=== PATIENT | male | born 1985 | race Caucasian/White ===

== ENCOUNTER 2024-06-24 21:09 | Inpatient (IN) ==
[2024-06-25] MEDS ORDERED: VANCOMYCIN HCL 1,000 MG in SODIUM CHLORIDE 0.9% 250 ML IV SCH (00:50)
[2024-06-25] MEDS ORDERED: ONDANSETRON INJ 2 MG/ML 2 ML VIAL IV PRN (00:50)
[2024-06-25] MEDS ORDERED: VANCOMYCIN CONSULT ACTIVE PRN (00:50)
--- NOTE | 2024-06-25 01:07 | History & Physical Report ---
Date of Service June 25, 2024 Assessment & Plan (1) Meningitis: Plan: 38-year-old male with past medical history significant for migraines comes with c/o headaches and fevers. Patient's headache is going on for about a week. Also having fevers for 1 week. Also neck pain. Back pain. Spine pain. Complains of some runny nose. Some sore throat. Some cough. Abdominal pain. Constipated. Some shortness of breath. No chest pains. Appetite is poor. Mi cturating okay. While ambulating having imbalance. Vision is okay. Lights bothering him. Was at [facility] today. CT head was okay there. And he was transferred here for possible meningitis and for LP. Hemodynamics okay. Mother is in the room. Possible meningitis Severe headache and neck pain Fevers Leukocytosis CT head okay [facility] Will check MRI head CTA head and neck Empiric Rocephin, Vanco and acyclovir Lumbar puncture in a.m. IV fluids Pain control could not tolerate imaging studies because of pain last night, can try in am Consult ID and neurology Close monitor Thrombocytopenia Platelets 83 Possible from ongoing infection Follow repeat labs Liver lesion and possible splenomegaly Abdomen ultrasound when stable DVT prophylaxis SCDs for now Disposition Medical floor Full code. Admission and Anticipated Discharge Date Admission Date: June 24, 2024 History of Present Illness Chief Complaint: Severe headaches and fever Primary Care Provider: NO PCP 38-year-old male with past medical history significant for migraines comes with c/o headaches and fevers. Patient's headache is going on for about a week. Also having fevers for 1 week. Also neck pain. Back pain. Spine pain. Complains of some runny nose. Some sore throat. Some cough. Abdominal pain. Constipated. Some shortness of breath. No chest pains. Appetite is poor. Micturating okay. While ambulating having imbalance. Vision is okay. Lights bothering him. Was at [facility] today. CT head was okay there. And he was transferred here for possible meningitis and for LP. Hemodynamics okay. Mother is in the room. Past medical history. Migraines Past surgical history. Bilateral carpal tunnel surgeries Social history. Vapes tobacco. Currently no alcohol use. No drug use. Family history. No significant family history Allergies Allergy/AdvReac Type Severity Reaction Status Date / Time aluminum Allergy Unknown Unknown Verified 06/25/24 01:17 topiramate [From Topamax] Allergy Unknown Unknown Verified 06/25/24 01:17 Past Med/Surg History Problem List (Updated 06/25/24 @ 01:18 by Milton Alvarenga MD) Meningitis Social History Smoking Status: Current every day smoker Tobacco Type: E-cigarettes / Vaping Second Hand Exposure: No; Do You Dip or Chew Tobacco: No; Tobacco Cessation Education Requested by Patient: No Hx Alcohol Use: No Hx Substance Use: No Preferred Language: Wolof Communication Ability: Effective Compliance Director Required: No Beliefs That Will Affect Care: None Current Living Situation: Family Other Information That Helps Us Care for You: No Feels Safe at Home: Yes Safety Concerns: Feels Safe At This Time Assistive Devices: None Review of Systems Review of Systems: All systems reviewed & are unremarkable except as noted in HPI & below Physical Exam Physical Exam: General- Not in distress Head- atraumatic Eyes- EOMI ENT- oropharynx clear Neck- supple, no JVD. Lungs- clear to auscultation no wheezing or crackles. Heart- regular rate and rhythm; no murmur, no gallop. Abdomen- normal bowel sounds, soft, , no distension Extremities- no pretibial edema, no erythema seen Neuro- alert, oriented ; EOMI; no facial palsy; no dysarthria; moves extremities Skin- warm & dry Results & Data Results & Data Vital Signs (Past 12 Hours) Vital Signs Temp Pulse Resp BP Pulse Ox O2 Del Method 06/24/24 23:59 37.9 C H 72 18 124/82 98 Room Air 06/24/24 23:50 37.9 C H 72 18 124/82 98 Room Air Diagnostic Findings From [facility]: wbc 16.9, hb 16.9 hct 46.9, platelets 83. Sodium 137, potassium 3.8, chloride 99, co2 30, bun 9, cr 0.8 ,ca 8.5,T.B 0.5,ASt 50, Alt 99, Alk phosp 72 Covid negative, rapid strep negative CT head, No acute findings Chest xray., No acute findings CT chest No PE, Two lesions in liver lesions can do Ultrasound or MRI for better characterizations. possible enlarged spleen. Code Status & VTE Plan VTE Prophylaxis Plan VTE Prophylaxis will be ordered: Yes
[2024-06-25] MEDS: HYDROmorphone INJ 0.5 MG/0.5 ML SYR IV PRN (02:00)
[2024-06-25] MEDS: cefTRIAXone SODIUM 2,000 MG/50 ML BAG IV SCH (02:48)
[2024-06-25] MEDS: SODIUM CHLORIDE 0.9% 1,000 ML IV SCH (02:48)
[2024-06-25] MEDS: VANCOMYCIN HCL 1,500 MG in SODIUM CHLORIDE 0.9% 500 ML IV ONE (02:49)
[2024-06-25] MEDS: oxyCODONE HCL IR 5 MG TAB (IMMEDIATE RELEASE) PO PRN (03:30)
--- NOTE | 2024-06-25 03:31 | Magnetic Resonance Report ---
Exam(s): MRI HEAD Without Contrast EXAM: MR Head Without Intravenous Contrast CLINICAL HISTORY: severe headache. TECHNIQUE: Magnetic resonance images of the head/brain without intravenous contrast in multiple planes. COMPARISON: No relevant prior studies available. FINDINGS: Brain: The expected midline structures are unremarkable on sagittal T1 weighted imaging. No mass. No hemorrhage. No acute infarct. Ventricles: Unremarkable. No ventriculomegaly. Bones/joints: Unremarkable. No acute fracture. Sinuses: Unremarkable as visualized. No acute sinusitis. Mastoid air cells: Unremarkable as visualized. No mastoid effusion. Orbits: Unremarkable as visualized. IMPRESSION: Normal head/brain MRI. Electronically signed by: Randy Maza MD 06/25/24 03:19 AM
[2024-06-25] MEDS: ACYCLOVIR SOD IV SCH (03:41)
[2024-06-25] MEDS: DEXTROSE 5% IV SCH (03:41)
[2024-06-25] MEDS: ACETAMINOPHEN 1,000 MG/100 ML VIAL IV PRN (05:37)
--- NOTE | 2024-06-25 07:58 | Hospitalist Progress Note ---
Date of Service June 25, 2024 Assessment & Plan (1) Meningitis: (2) History of intravenous drug abuse: (3) History of hepatitis C: (4) Nausea: (5) Thrombocytopenia: Plan 38-year-old male with past medical history significant for migraines comes with c/o headaches and fevers. Patient's headache is going on for about a week. Also having fevers for 1 week. Also neck pain. Back pain. Spine pain. Complains of some runny nose. Some sore throat. Some cough. Abdominal pain. Constipated. Some shortness of breath. No chest pains. Appetite is poor. Micturating okay. While ambulating having imbalance. Vision is okay. Lights bothering him. Was at [facility] today. CT head was okay there. And he was transferred here for possible meningitis and for LP. Hemodynamics okay today. Atypical Meningitis: acute Severe headache and neck pain; improving from yesterday Fevers x1 week; 36.7 today; diaphoretic on exam No recent travel, No new medications, no exotic pets or known mold exposure Not a tamela or fisherman. Last week their cat killed a few moles and a bat; patient disposed of the rodents. Unknown exposure to saliva, blood Leukocytosis WBC 17.09 today; trend tomorrow Empiric Rocephin, Vanco and acyclovir; continue for now with ID recommendations. IV fluids @ 125ml/hour; continue for now Pain control with PRN Oxy and Dilaudid Consult ID and neurology Discussed on the phone with Neuro; as imaging negative and no signs of encephalitis and confirmed bacterial meningitis; originally cancelled consult; given the unknown etiology, will allow a formal consult to take place. Droplet precautions ECHO ordered Will obtain HIV blood work give history of Hepatitis C; Formal HIV consent obtained and ordered Close monitor--> moved to [facility] DDX includes: 1. Neoplastic type leukemia malignancy 2. Mollarets meningitis (associated with HSV - despite negative HSV on CSF) 3. Lymphocytic choriomeningitis virus The following imaging is negative: [facility] 06/24: negative Brain MRI: negative CTA head and neck ordered and pending Diagnostic testing results: 06/25: Lumbar Puncture: Cloudy per IR. CSF CBC 1,898. glucose is low(32) with elevated protein(147) HSV PCR is negative s/w Dr. Jeffery in pathology--> numerous vaculated macrophages which is quite unusual. Pathology recommends and will order flow cytometry for remaining fluid for analysis--> [place], will take until Saturday for results. Discussion with Dr. Say Cadet on the phone through the transfer center as ID consult (without physical examination). Reviewed the case, would recommend Dexamethasone 6 mg IV x3-4 days; this was ordered. Will await formal telemedicine ID consultation. Important to have continued ID consult while patient is here at the hospital. Discussion held at length with patients , Tg, at [phone] who stated that he gets quite emotional with news like this. This was important for us to know so that we could determine mental status change vs emotional due to possible diagnosis, etc. Advised her not to bring her kids into the hospital for visitation at this time. Currently, she would like him to remain at [facility] if possible. A possible transfer was discussed with infectious disease and at this time etiology would be the main indication for transfer; however, current treatment options would remain the unchanged from our current treatment plan. If patient declines or is not showing improvement, will re-discuss possible transfer to tertiary care center. Thrombocytopenia: acute Platelets 83--> 76 today likely in setting of bacterial meningitis Follow repeat labs H/O Hepatits C: H/O IVDA: Chronic Diagnosed 13-15 years ago. No formal treatment for Hepatitis C given marijana use and they were amidst trying to conceive children Known needle history with tattoo administration Known H/O IVDA 20 years ago. Last known use 20 years ago No homosexual encounters Patient is receptive to HIV testing Disposition: DVT prophylaxis: SCDs for now Disposition: Medical floor--> will transfer to med/tele today for closer monitoring Code Status: Full code I spent a total of 58 minutes coordinating, documenting, and providing care for this patient excluding time spent in the performance of separately billed services. All of the aforementioned completed while collaborating with the assigned attending physician for a full treatment plan. Please see their addendum for further details. Admission and Anticipated Discharge Date Admission Date: June 24, 2024 Supervising Physician Co-Signing Physician Notes Attending addendum: The patient was seen and examined in medical floor Remains weak, lethargic and pleasantly confused Presented with fever, photophobia, headache and confusion Not been feeling well since admission On examination Pleasantly confused with ongoing headache Hemodynamically stable Neuro examination showed positive neck stiffness and photophobia without any fo armin neurodeficit Other physical examination remained unremarkable His labs, imaging studies reviewed LP showed high white count with mostly mononuclear sites and immature cell typesfurther identification is pending Appreciate ID input and recommendation Possible lymphocytic CORHIO meningitis has to be ruled out with history of recent handling of a bat/mouse Will continue current intravenous antibiotic Agree with assessment and plan as outlined above by POLINA Holm and take the full responsibility of the patient's care in this hospital A total of 30 minutes spent in documentation and talking to the patient. Dr. Ingrid Neri Subjective Patient is lying in his hospital bed in distress. He has his eyes closed and appears uncomfortable. He states his headache is slightly improving; mostly frontal lobe region Diaphoretic on examination. Reports feeling 'foggy' Hard for patient to open his eyes. Reports nuchal rigidity, generalized body aches. Abdominal pain improving. Vomited x1 yesterday without blood. Has not ambulated today yet, but was able to move around in the bed for examination. Is tearful during examination as he is scared for next steps and to know what is going on. 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 ' Reports daily vaping (tobacco and marijuana) No history of AMI or CVA Reports history of IVDA 20 years ago. Reports known Hepatitis C from 12 years ago without treatment. known needle exposure with tattoo history Very emotional at bedside. Received Dilaudid x1 overnight. See A/P for further details. Review of Systems Review of Systems: Neuro: (-) Falls, trauma, slurred speech HEENT: (+) GONSALES, (+) dizziness, (-) dysphagia, (+) visual or auditory changes (+) generalized body aches CV: (-) CP, palpitations, swelling Resp: (-) SOB GI: (-) appetite changes, N/V/D, bowel changes (+) nausea : (-) urinary changes Skin: (-) rashes Psych: (-) anxiety, depression Physical Exam Physical Exam: Neuro: AAOx4, PERRLA, no aphagia, memory changes, CNII-XII grossly intact (+) nuchal rigidity HEENT: head normocephalic, moist mucus membranes PERRLA, diaphoretic CV: S1/S2, (-) M/G/R, (-) edema, cap refill < 3 seconds Resp: Lungs CTA in all [place]. On RA GI: Abdomen S/NT/ND, Ax4 bowel sounds, (-) CVA tenderness Musculoskeletal: 5/5 B/L UE strength, 5/5 B/L LE strength. Skin: (-) rashes , (-) erythema. Psych: euthymic mood Results & Data Results & Data Vital Signs (Past 12 Hours) Vital Signs Temp Pulse Resp BP Pulse Ox O2 Del Method 06/24/24 23:59 37.9 C H 72 18 124/82 98 Room Air 06/24/24 23:50 37.9 C H 72 18 124/82 98 Room Air Laboratory Results Short CBC 06/25/24 Range/Units 07:34 WBC 17.09 H (4.8-10.8) K/ul Hgb 15.7 (14.0-18.0) g/dl Hct 42.7 (42.0-52.0) % Plt Count 76 L (130-400) K/uL BMP 06/25/24 06/25/24 07:34 07:34 Sodium 136 Potassium 3.9 Chloride 100 Carbon Dioxide 31 BUN 11 Creatinine 0.77 0.76 Glucose 87 Calcium 7.5 L Liver Function 06/25/24 Range/Units 07:34 Total Bilirubin 0.6 (0.2-1.0) mg/dl AST 36 (13-39) U/L ALT 59 H (7-52) U/L Alkaline Phosphatase 52 (34-104) U/L Albumin 3.1 L (3.4-5.0) gm/dl Diagnostic Findings Brain MRI 06/25/24 00:50 Exam(s): MRI HEAD Without Contrast EXAM: MR Head Without Intravenous Contrast CLINICAL HISTORY: severe headache. TECHNIQUE: Magnetic resonance images of the head/brain without intravenous contrast in multiple planes. COMPARISON: No relevant prior studies available. FINDINGS: Brain: The expected midline structures are unremarkable on sagittal T1 weighted imaging. No mass. No hemorrhage. No acute infarct. Ventricles: Unremarkable. No ventriculomegaly. Bones/joints: Unremarkable. No acute fracture. Sinuses: Unremarkable as visualized. No acute sinusitis. Mastoid air cells: Unremarkable as visualized. No mastoid effusion. Orbits: Unremarkable as visualized. IMPRESSION: Normal head/brain MRI. Electronically signed by: Randy Maza MD 06/25/24 03:19 AM
[2024-06-25 08:28] LABS: INR 1.2 (0.9-1.1); Partial Thromboplastin Ratio 1.1; Partial Thromboplastin Time 29 Seconds (21-31); Prothrombin Time 12.9 Seconds (9.0-12.0)
[2024-06-25 08:38] LABS: Albumin Level 3.1 gm/dl (3.4-5.0); BUN Creatinine Ratio 14.3 (10-20); Bilirubin,Total 0.6 mg/dl (0.2-1.0); Calcium 7.5 mg/dl (8.6-10.3); Creatinine Clr Calc Pharmacy 124.6 ml/min; Est GFR (African American) 132.5 ml/min; Est GFR (Non-African American) 114.3 ml/min; Magnesium 1.5 mg/dl (1.7-2.4); Potassium 3.9 mmol/L (3.5-5.1); Total Protein 5.8 gm/dl (6.0-8.3)
[2024-06-25 08:48] LABS: Creatinine Clr Calc Pharmacy 126.3 ml/min; Est GFR (African American) 133.2 ml/min; Est GFR (Non-African American) 114.9 ml/min
[2024-06-25 09:00] LABS: Hematocrit (blood only) 42.7 % (42.0-52.0); Hemoglobin 15.7 g/dl (14.0-18.0); Mean Corpuscular Hemoglobin 32.8 pg (25.0-34.0); Mean Corpuscular Hgb Conc 36.8 g/dL (32.0-36.0); Mean Corpuscular Volume 89.1 fL (80.0-100.0); Mean Platelet Volume 11.2 fL (9.4-12.4); Platelet Count 76 K/uL (130-400); RDW Coefficient of Variation 11.5 % (11.5-14.5); RDW Standard Deviation 37.2 fL (36.4-46.3); Red Blood Count 4.79 M/uL (4.70-6.10); White Blood Count 17.09 K/ul (4.8-10.8)
[2024-06-25 09:25] LABS: ALC (manual) 8.37 K/uL (1.2-3.4); ANC (manual) 7.35 K/uL (1.4-6.5); Eosinophils # (manual) 1.03 K/uL (0-0.50); Eosinophils % (manual) 6 %; Lymphocytes # (manual) 2.91 K/uL (1.2-3.4); Lymphocytes % (manual) 17 %; Monocytes # (manual) 0.34 K/uL (0.11-0.59); Monocytes % (manual) 2 %; Neutrophils # (manual) 7.35 K/uL (1.40-6.50); Neutrophils % (manual) 43 %; Reactive Lymphocytes # (manual) 5.47 K/uL; Reactive Lymphocytes % (manual) 32 %; Toxic Vacuolation 1+
--- NOTE | 2024-06-25 09:25 | Pharmacy Report ---
Pharmacy PK ABX Note - Date of Service June 25, 2024 - Assessment and Plan Assessment 38 year old M receiving vancomycin, ceftriaxone, and acyclovir for treatment of meningitis. Pertinent microbiologic data includes: CSF culture to be collected this AM. Day # 1 of antimicrobial therapy. Plan Vancomycin * Loading dose: 1500 mg IV x 1 * Maintenance dose: 1000 mg IV every 8 hours * Regimen is predicted to achieve target AUC/FRANCISCO of 400-600 mg/L.hr * Random level ordered for: 06/26/2024 @ 0800 Pharmacy will continue to follow and will adjust dose/frequency as necessary. Thank you. Pharmacy has transitioned to AUC monitoring for vancomycin. AUC/FRANCISCO is the preferred PK/PD target and is associated with decreased risk of nephrotoxicity compared to traditional trough targets.
[2024-06-25] MEDS: VANCOMYCIN HCL 1,000 MG in SODIUM CHLORIDE 0.9% 250 ML IV SCH (09:54)
[2024-06-25 09:59] LABS: Total Protein CSF 141.7 mg/dl (15-45)
[2024-06-25 10:18] LABS: Bilirubin Direct 0.2 mg/dl (0-0.2)
[2024-06-25 10:27] LABS: Appearance CSF Cloudy; CSF Count Tube # 3; CSF Xanthrochromic No xanthochromia; Color CSF Colorless; Mononuclear WBC CSF Auto 96.8 %; Polynuclear WBC CSF Auto 3.2 %; White Blood Cell CSF Auto 1898 /uL (0-5)
[2024-06-25 10:31] LABS: Red Blood Cell CSF Manual 20 (0-)
[2024-06-25 11:13] LABS: Cryptococcus neoformans/ga PCR Not Detected (NotDetected); Cytomegalovirus PCR Not Detected (NotDetected); Enterovirus PCR Not Detected (NotDetected); Escherichia coli K1 PCR Not Detected (NotDetected); Haemophilius influenzae PCR Not Detected (NotDetected); Herpes Simplex Virus 1 PCR Not Detected (NotDetected); Herpes Simplex Virus 2 PCR Not Detected (NotDetected); Human Herpes Virus 6 PCR Not Detected (NotDetected); Human Parechovirus PCR Not Detected (NotDetected); Listeria monocytogenes PCR Not Detected (NotDetected); Neisseria meningitidis PCR Not Detected (NotDetected); Streptococcus agalactiae PCR Not Detected (NotDetected); Streptococcus pneumoniae PCR Not Detected (NotDetected); Varicella Zoster Virus PCR Not Detected (NotDetected)
--- NOTE | 2024-06-25 11:54 | Fluoroscopy Report ---
Lumbar puncture under fluoroscopy INDICATION: Headache and fever; evaluate for meningitis PROCEDURE: Procedure and risks were explained. Informed consent was obtained. A final timeout was com pleted. The patient was placed prone on the fluoroscopic exam table. The lower lumbar region was prep ped and draped in sterile fashion. 1% lidocaine was utilized for skin anesthesia. Utilizing fluoroscopic guidance, a 22-gauge spinal needle was advanced into the intrathecal space at the L2-3 level. Spot image was obtained. Opening pressure was measured at 22 cm H20. Approximately 10 mL of cloudy CSF fluid was removed and sent to the lab for analysis. The needle was removed and Band -Aid applied. The patient tolerated the procedure well. Vital signs will be monitored postprocedure. Total fluoroscopy time 10 seconds. Study dose 14.99 mGy. IMPRESSION: Lumbar puncture as above. Performed, dictated, and signed by Randy Bhakta PA-C; to be co-signed by Dr. Vikas Sousa. Electronically signed by: Vikas Sousa M.D. 06/25/2024 12:06 PM
--- NOTE | 2024-06-25 14:00 | Infectious Disease Consult ---
Date of Service June 25, 2024 Telehealth Information I performed this visit using a real-time telehealth connection between my location and the patients location ([facility]). After connecting through interactive tele-video, patient was identified by name and date of and/or wristband check.Patient (or authorized healthcare lifeline representatives) was informed that this was a telemedicine visit and it was being conducted confidentially over secure lines. My office door was closed and no o ne else was present in the room with me.Patient (or authorized healthcare lifeline representatives) provided consent to proceed with the visit, expressed an understanding of privacy and security of the telemedicine visit, and gave permission to have a hospital lifeline representatives in the room in order to assist with the visit and to conduct portions of the visit, as needed. I informed the patient (or authorized healthcare lifeline representatives) that I reviewed their record and presented the opportunity for them to ask any questions regarding the visit today. The patient agreed to participate. Assessment & Plan (1) History of hepatitis C: Plan: Untreated obtain VL (2) History of intravenous drug abuse: Plan: Drug screen (3) Meningitis: Plan: s/p LP (4) Encephalopathy acute: Plan: Continue ceftriaxone ,vancomycin,acyclovir and dexamethazone Plan Patient who presented with headache and fever and is s/p LP with elevated WBC ,low glucose and elevated protein .Agree with ceftriaxone and vancomycin pending finalization of his cultures and while his HSV PCR is negative there remains concern for Mollarets vs neoplastic type leukemic malignancy due to abundance of vaculated macrophages and so will continue acyclovir for now.Follow up his bacterial CSF cultures he will likely need antibiotics for 10-14 days.Thank you for allowing us to participate in the care of this patient ID will continue to follow History of Present Illness History of Present Illness 38 y/o M PMHx of untreated hepatitis C ,migraines and remote history of IVDA presented with c/o headaches and fevers.Patient's headache is going on for about a week and has been accompanied by fevers .He is s/p LP and is currently on ceftriaxone,vancomycin ,acyclovir and dexamethazone .His CSF WBC is elevated 1898 and glucose is low(32) with elevated protein(147) HSV PCR is negative .His slides were reviewed by pathology and there was concern for Mollarets vs neoplastic type leukemic malignancy due to abundance of vacuolated macrophages Allergies Allergy/AdvReac Type Severity Reaction Status Date / Time aluminum Allergy Unknown Unknown Verified 06/25/24 01:17 topiramate [From Topamax] Allergy Unknown Unknown Verified 06/25/24 01:17 Patient History Social History Smoking Status: Current every day smoker Tobacco Type: E-cigarettes / Vaping Second Hand Exposure: No; Do You Dip or Chew Tobacco: No; Tobacco Cessation Education Requested by Patient: No Hx Alcohol Use: No Hx Substance Use: No Preferred Language: Belarusian Communication Ability: Effective Extraction Machine Operator Required: No Beliefs That Will Affect Care: None Current Living Situation: Family Other Information That Helps Us Care for You: No Feels Safe at Home: Yes Safety Concerns: Feels Safe At This Time Assistive Devices: None Review of Systems Unable to assess as patient does not respond to questions Physical Exam No respiratory distress Results & Data Vital Signs (Past 12 Hours) Vital Signs Temp Pulse Resp BP Pulse Ox O2 Del Method 06/25/24 09:00 Room Air 06/25/24 07:54 36.7 C 66 16 135/91 95 Room Air Laboratory Results Gram Stain Final 06/25/24-1131 Gram Stain Result Many WBCs Seen No Organisms Seen Diagnostic Findings FINDINGS: Brain: The expected midline structures are unremarkable on sagittal T1 weighted imaging. No mass. No hemorrhage. No acute infarct. Ventricles: Unremarkable. No ventriculomegaly. Bones/joints: Unremarkable. No acute fracture. Sinuses: Unremarkable as visualized. No acute sinusitis. Mastoid air cells: Unremarkable as visualized. No mastoid effusion. Orbits: Unremarkable as visualized. IMPRESSION: Normal head/brain MRI.
[2024-06-25] MEDS: dexAMETHasone 6 MG in SYRINGE 0 ML IV SCH (14:23)
--- NOTE | 2024-06-25 20:55 | Electrocardiogram Report ---
Test Reason : Blood Pressure : */* mmHG Vent. Rate : 65 BPM Atrial Rate : 65 BPM P-R Int : 94 ms QRS Dur : 88 ms QT Int : 340 ms P-R-T Axes : 85 83 65 degrees QTcB Int : 353 ms Sinus rhythm with short ID Otherwise normal ECG No previous ECGs available Confirmed by Bryan hKan ([id number]) on 06/25/2024 8:54:51 PM Referred By: Milton Alvarenga Confirmed By: Bryan Khan
[2024-06-26] MEDS: LORazepam 0.5 MG TAB SL STA (06:24)
--- NOTE | 2024-06-26 07:53 | Hospitalist Progress Note ---
Date of Service June 26, 2024 Assessment & Plan (1) Meningitis: (2) History of intravenous drug abuse: (3) History of hepatitis C: (4) Nausea: (5) Thrombocytopenia: Plan 38-year-old male with past medical history significant for migraines comes with c/o headaches and fevers. Patient's headache is going on for about a week. Also having fevers for 1 week. Also neck pain. Back pain. Spine pain. Complains of some runny nose. Some sore throat. Some cough. Abdominal pain. Constipated. Some shortness of breath. No chest pains. Appetite is poor. Micturating okay. While ambulating having imbalance. Vision is okay. Lights bothering him. Was at [facility] today. CT head was okay there. And he was transferred here for possible meningitis and for LP. Hemodynamics okay today. Atypical Meningitis: acute Remain in PCU Severe headache and neck pain; continues to improve Fevers x1 week; 36.7 today; diaphoretic on exam 06/25 LP done; Cloudy per IR. CSF CBC 1,898. glucose is low(32) with elevated protein(147) HSV PCR is negative s/w Dr. Jeffery in pathology--> numerous vaculated macrophages. flow cytometry ordered for remaining fluid for analysis--> [place], will take until 06/30 for results. Leukocytosis WBC 17.09--> 13.07 on 06/26 Continue Rocephin, Vanco and acyclovir; continue for now per ID reccs Dexamethasone 6 mg IV started on 06/25 for 3-4 days. IV fluids @ 125mL/hour--> decrease to 80ml/hour until diet advances; advance as tolerated Pain control with Tylenol. Pt groggy with Oxy + Dilaudid. Discontinue for now. Discussed on the phone with Neuro; as imaging negative and no signs of encephalitis and confirmed bacterial meningitis; originally cancelled consult; given the unknown etiology, will allow a formal consult to take place. Droplet precautions in place ECHO ordered Will obtain HIV blood work give history of Hepatitis C; Formal HIV consent obtained and ordered No recent travel, No new medications, no exotic pets or known mold exposure Last week their cat killed a few moles and a bat; patient disposed of the rodents. Unknown exposure to saliva, blood Not a tamela or fisherman. DDX includes: 1. Neoplastic type leukemia malignancy 2. Mollarets meningitis (associated with HSV - despite negative HSV on CSF) 3. Lymphocytic choriomeningitis virus The following imaging is negative: [facility] 06/24: negative Brain MRI: negative CTA head and neck ordered and pending Discussion held at length with patients , Tg, at [phone] who stated that he gets quite emotional. She was grateful for the updated news of marked improvement with labs. She mentioned that he has a history of compression fracture that worsens with immoblization; he only takes Ibuprofen for this at home. A possible transfer was discussed with infectious disease and at this time etiology would be the main indication for transfer; however, current treatment options would remain the unchanged from our current treatment plan. If patient declines or is not showing improvement, will re-discuss possible transfer to tertiary care center. Thrombocytopenia: acute Platelets 83--> 76--> 06/26 improving @ 102 likely in setting of meningitis Follow repeat labs H/O Hepatits C: H/O IVDA: Chronic Diagnosed 13-15 years ago. No formal treatment for Hepatitis C given marijana use and they were amidst trying to conceive children Known needle history with tattoo administration Known H/O IVDA 20 years ago. Last known use 20 years ago No homosexual encounters HIV negative today Back pain: H/O Compression fractures: chronic Per , worsens with immobilization Takes Ibuprofen PRN at home Disposition: DVT prophylaxis: Teds/SCDs for now Disposition: PCU Code Status: Full code I spent a total of 58 minutes coordinating, documenting, and providing care for this patient excluding time spent in the performance of separately billed services. All of the aforementioned completed while collaborating with the assigned attending physician for a full treatment plan. Please see their addendum for further details. Admission and Anticipated Discharge Date Admission Date: June 25, 2024 Supervising Physician Co-Signing Physician Notes Attending addendum: The patient was seen and examined in medical floor Remains weak, lethargic and pleasantly confused Clinically stable but remains weak and lethargic On examination Pleasantly confused with ongoing headache Hemodynamically stable Neuro examination showed positive neck stiffness and photophobia without any focal neurodeficit Other physical examination remained unremarkable His labs, imaging studies reviewed LP showed high white count with mostly mononuclear sites and immature cell typesfurther identification is pending Appreciate ID input and recommendation Gradual improvement with improvement of the white count and a little symptomatic improvement Agree with assessment and plan as outlined above by POLINA Martino and take the full responsibility of the patient care Total time taken in documentation and discussion with the patient was [address] Sadia Neri Subjective Patient is lying in his hospital bed in distress. He has his eyes closed and appears uncomfortable; is able to have full conversation with his eyes closed. He states his headache continues to be in the frontal lobe region was afebrile overnight. T max 38.3 this morning; responds to tylenol Hard for patient to open his eyes; generalized body aches. Abdominal pain improving. Vomited x2 yesterday without blood. Tried to eat full liquid diet last night and vomited. Per staff, he ate rather quickly, so should take it slow for intake. Has not ambulated today yet, resistant to moving around for examination. Continues to be tearful; provided reassurance with improving WBC Received Dilaudid x2 over past 24 hours and ONE dose of Oxy; DC at outlined below See A/P for further details. Review of Systems Review of Systems: Neuro: (-) Falls, trauma, slurred speech HEENT: (+) GONSALES, (+) dizziness, (-) dysphagia, (+) visual or auditory changes (+) generalized body aches CV: (-) CP, palpitations, swelling Resp: (-) SOB GI: (-) appetite changes, N/V/D, bowel changes (+) nausea : (-) urinary changes Skin: (-) rashes Psych: (-) anxiety, depression Physical Exam Physical Exam: Neuro: AAOx4, PERRLA, no aphagia, memory changes, CNII-XII grossly intact (+) nuchal rigidity HEENT: head normocephalic, moist mucus membranes PERRLA, diaphoretic CV: S1/S2, (-) M/G/R, (-) edema, cap refill < 3 seconds Resp: Lungs CTA in all [place]. On RA GI: Abdomen S/NT/ND, Ax4 bowel sounds, (-) CVA tenderness Musculoskeletal: 5/5 B/L UE strength, 5/5 B/L LE strength. Skin: (-) rashes , (-) erythema. Psych: euthymic mood Results & Data Results & Data Vital Signs (Past 12 Hours) Vital Signs Temp Pulse Pulse Resp BP Pulse Ox O2 Del Method 06/26/24 06:48 60 06/26/24 04:01 37.3 C 68 18 106/76 96 Room Air 06/25/24 23:20 38.0 C H 61 19 129/59 L 95 Room Air 06/25/24 22:47 65 06/25/24 21:44 Room Air Laboratory Results Short CBC 06/26/24 Range/Units 08:31 WBC 13.67 H (4.8-10.8) K/ul Hgb 15.7 (14.0-18.0) g/dl Hct 43.7 (42.0-52.0) % Plt Count 102 L (130-400) K/uL BMP 06/26/24 08:31 Sodium 136 Potassium 4.2 Chloride 98 Carbon Dioxide 32 BUN 14 Creatinine 0.66 Glucose 105 H Calcium 7.6 L Liver Function 06/26/24 Range/Units 08:31 Total Bilirubin 0.5 (0.2-1.0) mg/dl AST 26 (13-39) U/L ALT 43 (7-52) U/L Alkaline Phosphatase 47 (34-104) U/L Albumin 3.1 L (3.4-5.0) gm/dl
[2024-06-26 08:57] LABS: Hematocrit (blood only) 43.7 % (42.0-52.0); Hemoglobin 15.7 g/dl (14.0-18.0); Mean Corpuscular Hemoglobin 32.2 pg (25.0-34.0); Mean Corpuscular Hgb Conc 35.9 g/dL (32.0-36.0); Mean Corpuscular Volume 89.5 fL (80.0-100.0); Mean Platelet Volume 10.7 fL (9.4-12.4); Platelet Count 102 K/uL (130-400); RDW Coefficient of Variation 11.3 % (11.5-14.5); RDW Standard Deviation 36.6 fL (36.4-46.3); Red Blood Count 4.88 M/uL (4.70-6.10); White Blood Count 13.67 K/ul (4.8-10.8)
[2024-06-26] MEDS: VANCOMYCIN LEVEL ONE (09:07)
[2024-06-26 09:16] LABS: Albumin Globulin Ratio 1.1 (0.9-2); Albumin Level 3.1 gm/dl (3.4-5.0); BUN Creatinine Ratio 21.2 (10-20); Bilirubin,Total 0.5 mg/dl (0.2-1.0); Calcium 7.6 mg/dl (8.6-10.3); Creatinine Clr Calc Pharmacy 145.4 ml/min; Est GFR (African American) 141.2 ml/min; Est GFR (Non-African American) 121.8 ml/min; Globulin 2.8 gm/dl (2.5-4.0); Potassium 4.2 mmol/L (3.5-5.1); Total Protein 5.9 gm/dl (6.0-8.3)
[2024-06-26 09:30] LABS: ALC (manual) 2.73 K/uL (1.2-3.4); ANC (manual) 9.43 K/uL (1.4-6.5); Basophils # (manual) 0.14 K/uL (0-0.2); Basophils % (manual) 1 %; Lymphocytes # (manual) 1.09 K/uL (1.2-3.4); Lymphocytes % (manual) 8 %; Monocytes # (manual) 1.37 K/uL (0.11-0.59); Monocytes % (manual) 10 %; Neutrophils # (manual) 9.43 K/uL (1.40-6.50); Neutrophils % (manual) 69 %; Reactive Lymphocytes # (manual) 1.64 K/uL; Reactive Lymphocytes % (manual) 12 %
[2024-06-26] MEDS: VANCOMYCIN HCL 1,250 MG in SODIUM CHLORIDE 0.9% 250 ML IV SCH (10:08)
[2024-06-26] MEDS: PROMETHAZINE 12.5 MG/50.5 ML BAG IV PRN (12:14)
--- NOTE | 2024-06-26 12:55 | Pharmacy Report ---
Pharmacy PK ABX Note - Date of Service June 26, 2024 - Assessment and Plan Assessment * 38 year old M receiving vancomycin, ceftriaxone, and acyclovir for treatment of possible meningitis. ID consulted * CSF culture and PCR panel negative at this time * SCr stable and at/near baseline Plan Vancomycin * Target AUC/FRANCISCO of 400-600 mg/L.hr * Random level of 8.8 mcg/mL this AM associated with subtherapeutic AUC of 375 mg/L.hr * Will increase maintenance dose and re-check level in 48 hours * Maintenance dose: 1250 mg IV every 8 hours * Random level ordered for: 06/28/2024 @ 0800 Pharmacy will continue to follow and will adjust dose/frequency as necessary. Thank you. Pharmacy has transitioned to AUC monitoring for vancomycin. AUC/FRANCISCO is the preferred PK/PD target and is associated with decreased risk of nephrotoxicity compared to traditional trough targets.
[2024-06-26] MEDS: DOCUSATE SODIUM 100 MG CAP PO SCH (23:05)
[2024-06-26] MEDS: LORazepam 0.5 MG TAB PO PRN (23:09)
[2024-06-26] MEDS: ZOLPIDEM TARTRATE 5 MG TAB PO STA (23:48)
[2024-06-26] MEDS: oxyCODONE HCL IR 5 MG TAB (IMMEDIATE RELEASE) PO STA (23:55)
[2024-06-27 06:58] LABS: Hematocrit (blood only) 44.9 % (42.0-52.0); Hemoglobin 16.3 g/dl (14.0-18.0); Mean Corpuscular Hemoglobin 32.2 pg (25.0-34.0); Mean Corpuscular Hgb Conc 36.3 g/dL (32.0-36.0); Mean Corpuscular Volume 88.7 fL (80.0-100.0); Platelet Count 150 K/uL (130-400); RDW Coefficient of Variation 11.2 % (11.5-14.5); RDW Standard Deviation 36.1 fL (36.4-46.3); Red Blood Count 5.06 M/uL (4.70-6.10); White Blood Count 13.59 K/ul (4.8-10.8)
[2024-06-27 07:21] LABS: Albumin Level 3.2 gm/dl (3.4-5.0); BUN Creatinine Ratio 23.8 (10-20); Bilirubin,Total 0.5 mg/dl (0.2-1.0); Calcium 8.1 mg/dl (8.6-10.3); Creatinine Clr Calc Pharmacy 152.3 ml/min; Est GFR (African American) 143.9 ml/min; Est GFR (Non-African American) 124.1 ml/min; Globulin 3.2 gm/dl (2.5-4.0); Potassium 4.3 mmol/L (3.5-5.1); Total Protein 6.4 gm/dl (6.0-8.3)
[2024-06-27 07:42] LABS: ALC (manual) 4.89 K/uL (1.2-3.4); ANC (manual) 7.61 K/uL (1.4-6.5); Basophils # (manual) 0.14 K/uL (0-0.2); Basophils % (manual) 1 %; Lymphocytes # (manual) 1.36 K/uL (1.2-3.4); Lymphocytes % (manual) 10 %; Monocytes # (manual) 0.95 K/uL (0.11-0.59); Monocytes % (manual) 7 %; Neutrophils # (manual) 7.61 K/uL (1.40-6.50); Neutrophils % (manual) 56 %; Reactive Lymphocytes # (manual) 3.53 K/uL; Reactive Lymphocytes % (manual) 26 %
--- NOTE | 2024-06-27 15:35 | Hospitalist Progress Note ---
Date of Service June 27, 2024 Assessment & Plan (1) Meningitis: (2) History of intravenous drug abuse: (3) History of hepatitis C: (4) Nausea: (5) Thrombocytopenia: Plan 38-year-old male with past medical history significant for migraines comes with c/o headaches and fevers. Patient's headache is going on for about a week. Also having fevers for 1 week. Also neck pain. Back pain. Spine pain. Complains of some runny nose. Some sore throat. Some cough. Abdominal pain. Constipated. Some shortness of breath. No chest pains. Appetite is poor. Micturating okay. While ambulating having imbalance. Vision is okay. Lights bothering him. Was at [facility] today. CT head was okay there. And he was transferred here for possible meningitis and for LP. Hemodynamics okay today. Atypical Meningitis: acute Remain in PCU Severe headache and neck pain; continues to improve Fevers x1 week; 36.7 today; diaphoretic on exam 06/25 LP done; Cloudy per IR. CSF CBC 1,898. glucose is low(32) with elevated protein(147) HSV PCR is negative s/w Dr. Jeffery in pathology--> numerous vaculated macrophages. flow cytometry ordered for remaining fluid for analysis--> [place], will take until 06/30 for results. Leukocytosis WBC 17.09--> 13.07 on 06/26 Continue Rocephin, Vanco and acyclovir; continue for now per ID reccs Dexamethasone 6 mg IV started on 06/25 for 3-4 days. IV fluids @ 125mL/hour--> decrease to 80ml/hour until diet advances; advance as tolerated Pain control with Tylenol. Pt groggy with Oxy + Dilaudid. Discontinue for now. Discussed on the phone with Neuro; as imaging negative and no signs of encephalitis and confirmed bacterial meningitis; originally cancelled consult; given the unknown etiology, will allow a formal consult to take place. Droplet precautions in place ECHO ordered Will obtain HIV blood work give history of Hepatitis C; Formal HIV consent obtained and ordered No recent travel, No new medications, no exotic pets or known mold exposure Last week their cat killed a few moles and a bat; patient disposed of the rodents. Unknown exposure to saliva, blood Not a tamela or fisherman. DDX includes: 1. Neoplastic type leukemia malignancy 2. Mollarets meningitis (associated with HSV - despite negative HSV on CSF) 3. Lymphocytic choriomeningitis virus The following imaging is negative: [facility] 06/24: negative Brain MRI: negative CTA head and neck ordered and pending Discussion held at length with patients , Tg, at [phone] who stated that he gets quite emotional. She was grateful for the updated news of marked improvement with labs. She mentioned that he has a history of compression fracture that worsens with immoblization; he only takes Ibuprofen for this at home. A possible transfer was discussed with infectious disease and at this time etiology would be the main indication for transfer; however, current treatment options would remain the unchanged from our current treatment plan. If patient declines or is not showing improvement, will re-discuss possible transfer to tertiary care center. Clinically much better today with clearing of the mental confusion/fogginess Denies any more headache and/or neck stiffness or photophobia Has been eating and drinking well Will continue current intravenous antibiotic and acyclovir CSF Lyme titer and cryptococcus antibody test pending Flow cytometry did not show any evidence of lymphoma and/or leukemia Thrombocytopenia acute Platelets 83--> 76--> 06/26 improving @ 102 likely in setting of meningitis Follow repeat labs-platelets have been normalized H/O Hepatits C: H/O IVDA: Chronic Diagnosed 13-15 years ago. No formal treatment for Hepatitis C given marijana use and they were amidst trying to conceive children Known needle history with tattoo administration Known H/O IVDA 20 years ago. Last known use 20 years ago No homosexual encounters HIV negative today Back pain: H/O Compression fractures: chronic Per , worsens with immobilization Takes Ibuprofen PRN at home Disposition: DVT prophylaxis: Teds/SCDs for now Disposition: PCU Code Status: Full code Admission and Anticipated Discharge Date Admission Date: June 25, 2024 Subjective 06/27/2024 Patient was seen and examined in telemetry He has been feeling much better Headache is better and does not seem to be more confused He has been eating and drinking well Review of Systems Review of Systems: All systems reviewed and are unremarkable except as noted below Physical Exam Physical Exam: Lying in bed without any acute distress Constitutional: well developed, well nourished, + ill appearing and average body habitus Eyes: PERRL, conjunctivae normal, anicteric sclerae ENMT: external ear and nose normal, oropharynx normal Neck: trachea midline, no thyromegaly Respiratory: no respiratory distress Auscultation: lungs clear to auscultation bilaterally Cardiovascular: Rate/Rhythm: regular rate and regular rhythm; not tachycardic Heart Sounds: normal S1 and normal S2; no murmur Extremities: no edema Gastrointestinal (Abdomen): Inspection/Auscultation: normal bowel sounds; abdomen not distended Percussion/Palpation: abdomen soft; abdomen nontender Musculoskeletal: No acute arthritis involving any of the joints Neurologic: normal touch/pain/proprioception and moves all extremities; no focal motor deficits No neck is stiffness, no photophobia or headache. Lymphatic: no cervical or axillary lymphadenopathy Results & Data Results & Data Vital Signs (Past 12 Hours) Vital Signs Temp Pulse Pulse Resp BP Pulse Ox O2 Del Method 06/27/24 13:18 Room Air 06/27/24 12:58 68 06/27/24 10:13 78 06/27/24 10:08 37.4 C 73 16 131/89 99 Room Air 06/27/24 06:49 38.2 C H 60 18 120/63 99 Room Air Laboratory Results Short CBC 06/27/24 Range/Units 06:33 WBC 13.59 H (4.8-10.8) K/ul Hgb 16.3 (14.0-18.0) g/dl Hct 44.9 (42.0-52.0) % Plt Count 150 (130-400) K/uL BMP 06/27/24 06:33 Sodium 136 Potassium 4.3 Chloride 99 Carbon Dioxide 30 BUN 15 Creatinine 0.63 Glucose 90 Calcium 8.1 L Liver Function 06/27/24 Range/Units 06:33 Total Bilirubin 0.5 (0.2-1.0) mg/dl AST 19 (13-39) U/L ALT 34 (7-52) U/L Alkaline Phosphatase 46 (34-104) U/L Albumin 3.2 L (3.4-5.0) gm/dl Medications Administered Current Inpatient Medications Docusate Sodium (Docusate Sodium 100 Mg Cap) 100 mg PO BID YFN Stop: 07/26/24 20:59 Last Admin: 06/27/24 08:09 Dose: 100 mg Sodium Chloride (Nss) 1,000 mls @ 80 mls/hr IV .[id number] [facility] Stop: 07/25/24 00:49 Last Infusion: 06/27/24 11:38 Dose: 0 mls/hr Ceftriaxone Sodium (Rocephin) 2,000 mg in 50 mls @ 100 mls/hr IV Q12H [facility] Stop: 07/05/24 01:14 Last Infusion: 06/27/24 01:58 Dose: Infused Acetaminophen (Ofirmev) 1,000 mg in 100 mls @ 400 mls/hr IV Q8H PRN PRN Reason: Pain or Fever Stop: 06/28/24 00:55 Last Infusion: 06/27/24 12:37 Dose: Infused Acyclovir Sodium 725 mg/ (Dextrose) 114.5 mls @ 100 mls/hr IV Q8H [facility]; Protocol Stop: 07/05/24 02:59 Last Admin: 06/27/24 14:41 Dose: 100 mls/hr Promethazine HCl (Phenergan) 12.5 mg in 50.5 mls @ 202 mls/hr IV Q6H PRN PRN Reason: Nausea And Vomiting Stop: 07/25/24 00:58 Last Infusion: 06/26/24 12:30 Dose: Infused Dexamethasone 6 mg/ Syringe 1.5 mls @ 1 mls/min IV Q24H [facility] Stop: 07/28/24 13:59 Last Admin: 06/26/24 14:35 Dose: 1 mls/min Vancomycin HCl 1,250 mg/ (Sodium Chloride) 275 mls @ 200 mls/hr IV Q8H [facility] Stop: 07/06/24 09:59 Last Infusion: 06/27/24 14:15 Dose: Infused Lorazepam (Lorazepam 0.5 Mg Tab) 0.5 mg PO Q8H PRN PRN Reason: Anxiety Stop: 07/26/24 13:46 Last Admin: 06/26/24 23:09 Dose: 0.5 mg Miscellaneous Information (Vancomycin Consult Active) 1 each N/A UD PRN PRN Reason: Consult Stop: 07/25/24 00:49 Ondansetron HCl (Ondansetron Inj 2 Mg/Ml 2 Ml Vial) 4 mg IV Q6H PRN PRN Reason: Nausea Stop: 07/25/24 00:49
[2024-06-28] MEDS ORDERED: VANCOMYCIN LEVEL ONE (07:00)
[2024-06-28 08:25] LABS: Albumin Globulin Ratio 1.1 (0.9-2); Albumin Level 3.5 gm/dl (3.4-5.0); BUN Creatinine Ratio 17.9 (10-20); Bilirubin,Total 0.5 mg/dl (0.2-1.0); Calcium 8.3 mg/dl (8.6-10.3); Est GFR (African American) 131.8 ml/min; Est GFR (Non-African American) 113.7 ml/min; Globulin 3.3 gm/dl (2.5-4.0); Potassium 4.1 mmol/L (3.5-5.1); Total Protein 6.8 gm/dl (6.0-8.3)
[2024-06-28 08:28] LABS: Hematocrit (blood only) 45.7 % (42.0-52.0); Hemoglobin 16.2 g/dl (14.0-18.0); Mean Corpuscular Hemoglobin 32.3 pg (25.0-34.0); Mean Corpuscular Hgb Conc 35.4 g/dL (32.0-36.0); Mean Platelet Volume 10.3 fL (9.4-12.4); Platelet Count 190 K/uL (130-400); RDW Coefficient of Variation 11.4 % (11.5-14.5); RDW Standard Deviation 38.2 fL (36.4-46.3); Red Blood Count 5.02 M/uL (4.70-6.10); White Blood Count 14.07 K/ul (4.8-10.8)
[2024-06-28 09:40] LABS: ALC (manual) 5.77 K/uL (1.2-3.4); Eosinophils # (manual) 0.14 K/uL (0-0.50); Eosinophils % (manual) 1 %; Lymphocytes # (manual) 1.41 K/uL (1.2-3.4); Lymphocytes % (manual) 10 %; Metamyelocytes # (manual) 0.14 K/uL (0-0); Metamyelocytes % (manual) 1 %; Monocytes # (manual) 0.42 K/uL (0.11-0.59); Monocytes % (manual) 3 %; Neutrophils % (manual) 54 %; Reactive Lymphocytes # (manual) 4.36 K/uL; Reactive Lymphocytes % (manual) 31 %
[2024-06-28 10:43] LABS: Cryptococcal Antigen Not Detected (Not Detected); Source CSF
[2024-06-28] MEDS: VANCOMYCIN LEVEL ONE (12:14)
--- NOTE | 2024-06-28 14:41 | Hospitalist Progress Note ---
Date of Service June 28, 2024 Assessment & Plan (1) Meningitis: (2) History of intravenous drug abuse: (3) History of hepatitis C: (4) Nausea: (5) Thrombocytopenia: Plan 38-year-old male with past medical history significant for migraines comes with c/o headaches and fevers. Patient's headache is going on for about a week. Also having fevers for 1 week. Also neck pain. Back pain. Spine pain. Complains of some runny nose. Some sore throat. Some cough. Abdominal pain. Constipated. Some shortness of breath. No chest pains. Appetite is poor. Micturating okay. While ambulating having imbalance. Vision is okay. Lights bothering him. Was at [facility] today. CT head was okay there. And he was transferred here for possible meningitis and for LP. Hemodynamics okay today. Atypical Meningitis: acute Remain in PCU Severe headache and neck pain; continues to improve Fevers x1 week; 36.7 today; diaphoretic on exam 06/25 LP done; Cloudy per IR. CSF CBC 1,898. glucose is low(32) with elevated protein(147) HSV PCR is negative s/w Dr. Jeffery in pathology--> numerous vaculated macrophages. flow cytometry ordered for remaining fluid for analysis--> [place], will take until 06/30 for results. Leukocytosis WBC 17.09--> 13.07 on 06/26 Continue Rocephin, Vanco and acyclovir; continue for now per ID reccs Dexamethasone 6 mg IV started on 06/25 for 3-4 days. IV fluids @ 125mL/hour--> decrease to 80ml/hour until diet advances; advance as tolerated Pain control with Tylenol. Pt groggy with Oxy + Dilaudid. Discontinue for now. Discussed on the phone with Neuro; as imaging negative and no signs of encephalitis and confirmed bacterial meningitis; originally cancelled consult; given the unknown etiology, will allow a formal consult to take place. Droplet precautions in place ECHO ordered Will obtain HIV blood work give history of Hepatitis C; Formal HIV consent obtained and ordered No recent travel, No new medications, no exotic pets or known mold exposure Last week their cat killed a few moles and a bat; patient disposed of the rodents. Unknown exposure to saliva, blood Not a tamela or fisherman. DDX includes: 1. Neoplastic type leukemia malignancy 2. Mollarets meningitis (associated with HSV - despite negative HSV on CSF) 3. Lymphocytic choriomeningitis virus The following imaging is negative: [facility] 06/24: negative Brain MRI: negative CTA head and neck ordered and pending Discussion held at length with patients , Tg, at [phone] who stated that he gets quite emotional. She was grateful for the updated news of marked improvement with labs. She mentioned that he has a history of compression fracture that worsens with immoblization; he only takes Ibuprofen for this at home. A possible transfer was discussed with infectious disease and at this time etiology would be the main indication for transfer; however, current treatment options would remain the unchanged from our current treatment plan. If patient declines or is not showing improvement, will re-discuss possible transfer to tertiary care center. Clinically much better today with clearing of the mental confusion/fogginess Denies any more headache and/or neck stiffness or photophobia Has been eating and drinking well Will continue current intravenous antibiotic and acyclovir CSF Lyme titer and cryptococcus antibody test pending Flow cytometry did not show any evidence of lymphoma and/or leukemia Patient has been stable and seems to be recovered from his atypical meningitis Discussed with the infectious diseases specialistlikely has bacterial meningitis and will continue with intravenous ceftriaxone for a total of 7 days Will discontinue other antibiotic and also antiviral and steroid Likely will discharge in a day or 2 Thrombocytopenia acute Platelets 83--> 76--> 06/26 improving @ 102 likely in setting of meningitis Follow repeat labs-platelets have been normalized H/O Hepatits C: H/O IVDA: Chronic Diagnosed 13-15 years ago. No formal treatment for Hepatitis C given marijana use and they were amidst trying to conceive children Known needle history with tattoo administration Known H/O IVDA 20 years ago. Last known use 20 years ago No homosexual encounters HIV negative today Back pain: H/O Compression fractures: chronic Per , worsens with immobilization Takes Ibuprofen PRN at home Disposition: DVT prophylaxis: Teds/SCDs for now Disposition: PCU Code Status: Full code Admission and Anticipated Discharge Date Admission Date: June 25, 2024 Subjective 06/27/2024 Patient was seen and examined in telemetry He has been feeling much better Headache is better and does not seem to be more confused He has been eating and drinking well 06/28/2024 The patient was seen and examined in the medical telemetry unit He has been much better and remained afebrile Does not have any symptoms and seems to be at his baseline Review of Systems Review of Systems: All systems reviewed and are unremarkable except as noted below Physical Exam Physical Exam: Lying in bed without any acute distress Constitutional: well developed, well nourished, + ill appearing and average body habitus Eyes: PERRL, conjunctivae normal, anicteric sclerae ENMT: external ear and nose normal, oropharynx normal Neck: trachea midline, no thyromegaly Respiratory: no respiratory distress Auscultation: lungs clear to auscultation bilaterally Cardiovascular: Rate/Rhythm: regular rate and regular rhythm; not tachycardic Heart Sounds: normal S1 and normal S2; no murmur Extremities: no edema Gastrointestinal (Abdomen): Inspection/Auscultation: normal bowel sounds; abdomen not distended Percussion/Palpation: abdomen soft; abdomen nontender Neurologic: normal touch/pain/proprioception and moves all extremities; no focal motor deficits Lymphatic: no cervical or axillary lymphadenopathy Results & Data Results & Data Vital Signs (Past 12 Hours) Vital Signs Temp Pulse Pulse Resp BP Pulse Ox O2 Del Method 06/28/24 11:23 37.5 C 68 20 112/68 97 Room Air 06/28/24 10:55 Room Air 06/28/24 07:51 37.6 C H 75 18 114/70 98 Room Air 06/28/24 05:36 90 06/28/24 04:29 37.7 C H 76 16 144/78 H 98 Room Air Laboratory Results Short CBC 06/28/24 Range/Units 07:46 WBC 14.07 H (4.8-10.8) K/ul Hgb 16.2 (14.0-18.0) g/dl Hct 45.7 (42.0-52.0) % Plt Count 190 (130-400) K/uL BMP 06/28/24 07:46 Sodium 131 L Potassium 4.1 Chloride 95 L Carbon Dioxide 30 BUN 14 Creatinine 0.78 Glucose 105 H Calcium 8.3 L Liver Function 06/28/24 Range/Units 07:46 Total Bilirubin 0.5 (0.2-1.0) mg/dl AST 21 (13-39) U/L ALT 32 (7-52) U/L Alkaline Phosphatase 48 (34-104) U/L Albumin 3.5 (3.4-5.0) gm/dl Medications Administered Current Inpatient Medications Docusate Sodium (Docusate Sodium 100 Mg Cap) 100 mg PO BID YFN Stop: 07/26/24 20:59 Last Admin: 06/28/24 09:31 Dose: Not Given Sodium Chloride (Nss) 1,000 mls @ 80 mls/hr IV .[id number] YFN Stop: 07/25/24 00:49 Last Infusion: 06/28/24 13:13 Dose: 0 mls/hr Ceftriaxone Sodium (Rocephin) 2,000 mg in 50 mls @ 100 mls/hr IV Q12H YFN Stop: 07/05/24 01:14 Last Infusion: 06/28/24 02:23 Dose: Infused Promethazine HCl (Phenergan) 12.5 mg in 50.5 mls @ 202 mls/hr IV Q6H PRN PRN Reason: Nausea And Vomiting Stop: 07/25/24 00:58 Last Infusion: 06/26/24 12:30 Dose: Infused Lorazepam (Lorazepam 0.5 Mg Tab) 0.5 mg PO Q8H PRN PRN Reason: Anxiety Stop: 07/26/24 13:46 Last Admin: 06/28/24 02:25 Dose: 0.5 mg Ondansetron HCl (Ondansetron Inj 2 Mg/Ml 2 Ml Vial) 4 mg IV Q6H PRN PRN Reason: Nausea Stop: 07/25/24 00:49
[2024-06-28] MEDS: ENOXAPARIN INJ 40 MG/0.4 ML SYR SQ SCH (15:57)
[2024-06-28] MEDS ORDERED: DEXAMETHASONE SOD INJ 4 MG/ML VIAL IV STA (18:37)
[2024-06-28] MEDS: dexAMETHasone 4 MG in SYRINGE 0 ML IV STA (19:57)
[2024-06-28] MEDS: KETOROLAC TROMETHAMINE 15 MG/ML VIAL IV ONE (19:57)
[2024-06-29] MEDS: ACETAMINOPHEN 325 MG TAB PO PRN (04:54)
[2024-06-29 07:10] LABS: Hemoglobin 16.8 g/dl (14.0-18.0); Mean Corpuscular Hemoglobin 32.6 pg (25.0-34.0); Mean Corpuscular Hgb Conc 36.5 g/dL (32.0-36.0); Mean Corpuscular Volume 89.3 fL (80.0-100.0); Platelet Count 227 K/uL (130-400); RDW Coefficient of Variation 11.1 % (11.5-14.5); RDW Standard Deviation 35.9 fL (36.4-46.3); Red Blood Count 5.15 M/uL (4.70-6.10); White Blood Count 15.94 K/ul (4.8-10.8)
[2024-06-29 07:38] LABS: BUN Creatinine Ratio 17.2 (10-20); Calcium 8.6 mg/dl (8.6-10.3); Creatinine Clr Calc Pharmacy 149.9 ml/min; Est GFR (African American) 142.9 ml/min; Est GFR (Non-African American) 123.3 ml/min; Potassium 4.3 mmol/L (3.5-5.1)
[2024-06-29 07:47] LABS: ALC (manual) 7.17 K/uL (1.2-3.4); ANC (manual) 7.49 K/uL (1.4-6.5); Eosinophils # (manual) 0.16 K/uL (0-0.50); Eosinophils % (manual) 1 %; Lymphocytes # (manual) 2.07 K/uL (1.2-3.4); Lymphocytes % (manual) 13 %; Metamyelocytes # (manual) 0.32 K/uL (0-0); Metamyelocytes % (manual) 2 %; Monocytes % (manual) 5 %; Neutrophils # (manual) 7.49 K/uL (1.40-6.50); Neutrophils % (manual) 47 %; Reactive Lymphocytes % (manual) 32 %
--- NOTE | 2024-06-29 09:24 | XRay Report ---
XR chest 2V PA/lateral HISTORY: Cough. r/o Pneumonia COMPARISON: None. FINDINGS: The lungs are clear. Cardiac silhouette is normal in size. No pleural effusions. No pneumot horax. IMPRESSION: No acute process. ACT 112: Negative or not required by law. Electronically signed by: Vikas Sousa M.D. 06/29/2024 9:22 AM
--- NOTE | 2024-06-29 12:11 | Hospitalist Progress Note ---
Date of Service June 29, 2024 Assessment & Plan (1) Meningitis: (2) History of intravenous drug abuse: (3) History of hepatitis C: (4) Nausea: (5) Thrombocytopenia: Plan 38-year-old male with past medical history significant for migraines comes with c/o headaches and fevers. Patient's headache is going on for about a week. Also having fevers for 1 week. Also neck pain. Back pain. Spine pain. Complains of some runny nose. Some sore throat. Some cough. Abdominal pain. Constipated. Some shortness of breath. No chest pains. Appetite is poor. Micturating okay. While ambulating having imbalance. Vision is okay. Lights bothering him. Was at [facility] today. CT head was okay there. And he was transferred here for possible meningitis and for LP. Hemodynamics okay today. Atypical Meningitis: acute Remain in PCU Severe headache and neck pain; continues to improve Fevers x1 week; 36.7 today; diaphoretic on exam 06/25 LP done; Cloudy per IR. CSF CBC 1,898. glucose is low(32) with elevated protein(147) HSV PCR is negative s/w Dr. Jeffery in pathology--> numerous vaculated macrophages. flow cytometry ordered for remaining fluid for analysis--> [place], will take until 06/30 for results. Leukocytosis WBC 17.09--> 13.07 on 06/26 Continue Rocephin, Vanco and acyclovir; continue for now per ID reccs Dexamethasone 6 mg IV started on 06/25 for 3-4 days. IV fluids @ 125mL/hour--> decrease to 80ml/hour until diet advances; advance as tolerated Pain control with Tylenol. Pt groggy with Oxy + Dilaudid. Discontinue for now. Discussed on the phone with Neuro; as imaging negative and no signs of encephalitis and confirmed bacterial meningitis; originally cancelled consult; given the unknown etiology, will allow a formal consult to take place. Droplet precautions in place ECHO ordered Will obtain HIV blood work give history of Hepatitis C; Formal HIV consent obtained and ordered No recent travel, No new medications, no exotic pets or known mold exposure Last week their cat killed a few moles and a bat; patient disposed of the rodents. Unknown exposure to saliva, blood Not a tamela or fisherman. DDX includes: 1. Neoplastic type leukemia malignancy 2. Mollarets meningitis (associated with HSV - despite negative HSV on CSF) 3. Lymphocytic choriomeningitis virus The following imaging is negative: [facility] 06/24: negative Brain MRI: negative CTA head and neck ordered and pending Discussion held at length with patients , Tg, at [phone] who stated that he gets quite emotional. She was grateful for the updated news of marked improvement with labs. She mentioned that he has a history of compression fracture that worsens with immoblization; he only takes Ibuprofen for this at home. A possible transfer was discussed with infectious disease and at this time etiology would be the main indication for transfer; however, current treatment options would remain the unchanged from our current treatment plan. If patient declines or is not showing improvement, will re-discuss possible transfer to tertiary care center. Clinically much better today with clearing of the mental confusion/fogginess Denies any more headache and/or neck stiffness or photophobia Has been eating and drinking well Will continue current intravenous antibiotic and acyclovir CSF Lyme titer and cryptococcus antibody test pending Flow cytometry did not show any evidence of lymphoma and/or leukemia Patient has been stable and seems to be recovered from his atypical meningitis Discussed with the infectious diseases specialistlikely has bacterial meningitis and will continue with intravenous ceftriaxone for a total of 7 days Will discontinue other antibiotic and also antiviral and steroid Likely will discharge in a day or 2 Noted to have fever of 38.8 at 3:49 early in the morning Denies any significant symptoms of headache and/or, nausea or vomiting Chest x-ray did not show any evidence of pneumonia Blood cultures were taken and will continue current antibiotic regimen with intravenous ceftriaxone Thrombocytopenia acute Platelets 83--> 76--> 06/26 improving @ 102 likely in setting of meningitis Follow repeat labs-platelets have been normalized H/O Hepatits C: H/O IVDA: Chronic Diagnosed 13-15 years ago. No formal treatment for Hepatitis C given marijana use and they were amidst trying to conceive children Known needle history with tattoo administration Known H/O IVDA 20 years ago. Last known use 20 years ago No homosexual encounters HIV negative today Back pain: H/O Compression fractures: chronic Per , worsens with immobilization Takes Ibuprofen PRN at home Disposition: DVT prophylaxis: Teds/SCDs for now Disposition: PCU Code Status: Full code Admission and Anticipated Discharge Date Admission Date: June 25, 2024 Subjective 06/27/2024 Patient was seen and examined in telemetry He has been feeling much better Headache is better and does not seem to be more confused He has been eating and drinking well 06/28/2024 The patient was seen and examined in the medical telemetry unit He has been much better and remained afebrile Does not have any symptoms and seems to be at his baseline 06/29/2024 Patient was seen and examined in medical telemetry unit He has had headache yesterday and received 1 dose of dexamethasone and also Toradol Noted to have fever earlier this morning Denies any headache endorse any other symptoms Review of Systems Review of Systems: All systems reviewed and are unremarkable except as noted below Physical Exam Physical Exam: Lying in bed without any acute distress Constitutional: well developed, well nourished, + ill appearing and average body habitus Eyes: PERRL, conjunctivae normal, anicteric sclerae ENMT: external ear and nose normal, oropharynx normal Neck: trachea midline, no thyromegaly Respiratory: no respiratory distress Auscultation: lungs clear to auscultation bilaterally Cardiovascular: Rate/Rhythm: regular rate and regular rhythm; not tachycardic Heart Sounds: normal S1 and normal S2; no murmur Extremities: no edema Gastrointestinal (Abdomen): Inspection/Auscultation: normal bowel sounds; abdomen not distended Percussion/Palpation: abdomen soft; abdomen nontender Neurologic: normal touch/pain/proprioception and moves all extremities; no focal motor deficits Lymphatic: no cervical or axillary lymphadenopathy Results & Data Results & Data Vital Signs (Past 12 Hours) Vital Signs Temp Pulse Pulse Resp BP Pulse Ox O2 Del Method 06/29/24 11:11 37.0 C 65 18 112/72 98 Room Air 06/29/24 08:25 36.9 C 63 18 97/60 L 99 Room Air 06/29/24 05:53 65 06/29/24 03:49 38.8 C H 84 20 103/68 98 Room Air Laboratory Results Short CBC 06/29/24 Range/Units 06:35 WBC 15.94 H (4.8-10.8) K/ul Hgb 16.8 (14.0-18.0) g/dl Hct 46.0 (42.0-52.0) % Plt Count 227 (130-400) K/uL BMP 06/29/24 06:35 Sodium 132 L Potassium 4.3 Chloride 98 Carbon Dioxide 26 BUN 11 Creatinine 0.64 Glucose 90 Calcium 8.6 Medications Administered Current Inpatient Medications Acetaminophen (Acetaminophen 325 Mg Tab) 650 mg PO Q6H PRN PRN Reason: Pain or Fever Stop: 07/29/24 03:39 Last Admin: 06/29/24 04:54 Dose: 650 mg Docusate Sodium (Docusate Sodium 100 Mg Cap) 100 mg PO BID [facility] Stop: 07/26/24 20:59 Last Admin: 06/29/24 09:38 Dose: 100 mg Enoxaparin Sodium (Enoxaparin Inj 40 Mg/0.4 Ml Syr) 40 mg SQ QAM [facility] Stop: 07/28/24 14:44 Last Admin: 06/29/24 09:35 Dose: Not Given Sodium Chloride (Nss) 1,000 mls @ 80 mls/hr IV .[id number] YFN Stop: 07/25/24 00:49 Last Infusion: 06/29/24 10:07 Dose: Infused Ceftriaxone Sodium (Rocephin) 2,000 mg in 50 mls @ 100 mls/hr IV Q12H YFN Stop: 07/05/24 01:14 Last Infusion: 06/29/24 01:30 Dose: Infused Promethazine HCl (Phenergan) 12.5 mg in 50.5 mls @ 202 mls/hr IV Q6H PRN PRN Reason: Nausea And Vomiting Stop: 07/25/24 00:58 Last Infusion: 06/26/24 12:30 Dose: Infused Lorazepam (Lorazepam 0.5 Mg Tab) 0.5 mg PO Q8H PRN PRN Reason: Anxiety Stop: 07/26/24 13:46 Last Admin: 06/28/24 02:25 Dose: 0.5 mg Ondansetron HCl (Ondansetron Inj 2 Mg/Ml 2 Ml Vial) 4 mg IV Q6H PRN PRN Reason: Nausea Stop: 07/25/24 00:49
[2024-06-30 08:04] LABS: Hematocrit (blood only) 42.6 % (42.0-52.0); Hemoglobin 15.5 g/dl (14.0-18.0); Mean Corpuscular Hemoglobin 32.9 pg (25.0-34.0); Mean Corpuscular Hgb Conc 36.4 g/dL (32.0-36.0); Mean Corpuscular Volume 90.4 fL (80.0-100.0); Mean Platelet Volume 10.2 fL (9.4-12.4); Platelet Count 213 K/uL (130-400); RDW Coefficient of Variation 11.3 % (11.5-14.5); Red Blood Count 4.71 M/uL (4.70-6.10); White Blood Count 13.78 K/ul (4.8-10.8)
[2024-06-30 08:07] LABS: BUN Creatinine Ratio 16.2 (10-20); Creatinine Clr Calc Pharmacy 129.7 ml/min; Est GFR (African American) 134.7 ml/min; Est GFR (Non-African American) 116.2 ml/min; Potassium 4.2 mmol/L (3.5-5.1)
[2024-06-30 08:47] LABS: ALC (manual) 5.24 K/uL (1.2-3.4); ANC (manual) 6.89 K/uL (1.4-6.5); Basophils # (manual) 0.28 K/uL (0-0.2); Basophils % (manual) 2 %; Eosinophils # (manual) 0.28 K/uL (0-0.50); Eosinophils % (manual) 2 %; Lymphocytes # (manual) 2.89 K/uL (1.2-3.4); Lymphocytes % (manual) 21 %; Monocytes % (manual) 8 %; Neutrophils # (manual) 6.89 K/uL (1.40-6.50); Neutrophils % (manual) 50 %; Reactive Lymphocytes # (manual) 2.34 K/uL; Reactive Lymphocytes % (manual) 17 %
--- NOTE | 2024-06-30 10:08 | Hospitalist Progress Note ---
Date of Service June 30, 2024 Assessment & Plan (1) Meningitis: (2) History of intravenous drug abuse: (3) History of hepatitis C: (4) Nausea: (5) Thrombocytopenia: Plan On Admission: "38-year-old male with past medical history significant for migraines comes with c/o headaches and fevers. Patient's headache is going on for about a week. Also having fevers for 1 week. Also neck pain. Back pain. Spine pain. Complains of some runny nose. Some sore throat. Some cough. Abdominal pain. Constipated. Some shortness of breath. No chest pains. Appetite is poor. Micturating okay. While ambulating having imbalance. Vision is okay. Lights bothering him. Was at [facility] today. CT head was okay there. And he was transferred here for possible meningitis and for LP. Hemodynamics okay today." Atypical Meningitis: acute Severe headache, neck pain, encephalopathy; continues to improve Fevers x1 week; 36.7 today; diaphoretic on exam 06/25 LP done; Cloudy per IR. CSF CBC 1,898. glucose is low(32) with elevated protein(147) HSV PCR is negative s/w Dr. Jeffery in pathology--> numerous vaculated macrophages. flow cytometry ordered for remaining fluid for analysis--> negative for neoplastic process Leukocytosis WBC 17.09--> 13k Initially on Rocephin, Vanco and acyclovir; continue for now per ID recs Now on IV rocephin only - plan to continue for additional 7-10 days Previously on IV steroids as well Tolerating diet and feels back to baseline Discussed on the phone with Neuro; as imaging negative and no signs of encephalitis and confirmed bacterial meningitis; originally cancelled consult; given the unknown etiology, will allow a formal consult to take place. Droplet precautions in place ECHO unremarkable Will obtain HIV blood work give history of Hepatitis C; Formal HIV consent obtained and ordered No recent travel, No new medications, no exotic pets or known mold exposure Last week their cat killed a few moles and a bat; patient disposed of the rodents. Unknown exposure to saliva, blood Not a tamela or fisherman. DDX includes: 1. Neoplastic type leukemia malignancy - ruled out 2. Mollarets meningitis (associated with HSV - despite negative HSV on CSF) 3. Lymphocytic choriomeningitis virus The following imaging is negative: [facility] 06/24: negative Brain MRI: negative CTA head and neck ordered and pending CSF all unremarkable - Lyme still pending Per Dr. Neri - Discussed with the infectious diseases specialistlikely has bacterial meningitis and will continue with intravenous ceftriaxone for a total of 7 days Discussed with Tg who is concerned given persistent fever and plan going forward and is questioning if further work up needs to take place I have a tiger text out to Infectious disease today for further recommendations - inital question was if testing was performed on WNV, EEE, also questioning anaplasma, lyme/tick serologies which will be ordered Thrombocytopenia acute Platelets 83--> 76--> 06/26 improving @ 102 likely in setting of meningitis Follow repeat labs-platelets have been normalized H/O Hepatits C: H/O IVDA: Chronic Diagnosed 13-15 years ago. No formal treatment for Hepatitis C given marijana use and they were amidst t rying to conceive children Known needle history with tattoo administration Known H/O IVDA 20 years ago. Last known use 20 years ago No homosexual encounters HIV negative today Back pain: H/O Compression fractures: chronic Per , worsens with immobilization Takes Ibuprofen PRN at home Disposition: DVT prophylaxis: Teds/SCDs for now Disposition: med tele, awaiting further recs from ID Code Status: Full code Tg, , to be contacted with updates. A total of 51 minutes was spent coordinating, documenting, and providing care for this patient excluding time spent in the performance of separately billed services. This included personally viewing all current laboratories and imaging studies, medication reconciliation, outpatient chart review, and discussion with specialists. Admission and Anticipated Discharge Date Admission Date: June 25, 2024 Supervising Physician Co-Signing Physician Notes Attending addendum: The patient was seen and examined in medical telemetry unit He has been feeling much better and denies any symptoms of meningitis and/or meningism Has been having fever for the last 2 days Repeat blood cultures are pending and no source of infection identified On examination Remains hemodynamically stable with temperature of 37.8 Physical examination otherwise unremarkable His labs, medications reviewed Likely has bacterial meningitis with ongoing fever but otherwise asymptomatic Will await further blood test as ordered Will continue current antibiotic to finish a course of 10 days intravenously Agree with assessment plan as outlined above by Radha drew PA-C and take the full responsibility of the care. Total time taken in examination and documentation was [address] Sadia Neri Subjective Patient was seen and examined in room 287-2. Follow up Meningitis. Pt feels well. He is asking, "when can I go home?" Patients Tg was present via telephone. She is concerned as to why she has not had any further updates over the weekend and is asking about pending lab results. She voices frustration over taking work off today and has three kids, because she thought he was going home today. Pt denies chills, chest pain, sob, uri sx, headache, neck pain, n/v/d, abd pain. He is tolerating diet and moving bowels/bladder. He feels 100% better from when he was admitted. He denies any further confusion, "fogginess." Nurse endorses no concerns at bedside. Review of Systems Review of Systems: All systems reviewed & are unremarkable except as noted in HPI & below Physical Exam Physical Exam: Gen: WD/WN, NAD, A&O x3 HEENT: Normocephalic, atraumatic, conjunctivae moist, sclerae anicteric, mucous membranes moist. Lung: Clear to Auscultation bilaterally, no wheezes/rales/rhonchi Heart: Regular rate, regular rhythm, no murmurs, rubs, or gallops Abdomen: Soft, NT, ND +BS x 4 Extremities: No edema Skin: Warm, no rash, negative turgor. Results & Data Results & Data Vital Signs (Past 12 Hours) Vital Signs Temp Pulse Pulse Resp BP Pulse Ox O2 Del Method 06/30/24 07:40 37.4 C 77 16 110/70 96 Room Air 06/30/24 07:31 84 06/30/24 03:13 38.1 C H 82 18 91/55 L 97 Room Air 06/29/24 23:23 37.8 C H 85 18 104/63 99 Room Air Medications Administered Current Inpatient Medications Acetaminophen (Acetaminophen 325 Mg Tab) 650 mg PO Q6H PRN PRN Reason: Pain or Fever Stop: 07/29/24 03:39 Last Admin: 06/30/24 03:18 Dose: 650 mg Docusate Sodium (Docusate Sodium 100 Mg Cap) 100 mg PO BID [facility] Stop: 07/26/24 20:59 Last Admin: 06/30/24 09:36 Dose: 100 mg Enoxaparin Sodium (Enoxaparin Inj 40 Mg/0.4 Ml Syr) 40 mg SQ QAM [facility] Stop: 07/28/24 14:44 Last Admin: 06/30/24 09:37 Dose: Not Given Sodium Chloride (Nss) 1,000 mls @ 80 mls/hr IV .[id number] [facility] Stop: 07/25/24 00:49 Last Admin: 06/30/24 08:56 Dose: 80 mls/hr Ceftriaxone Sodium (Rocephin) 2,000 mg in 50 mls @ 100 mls/hr IV Q12H [facility] Stop: 07/05/24 01:14 Last Infusion: 06/30/24 03:46 Dose: Infused Promethazine HCl (Phenergan) 12.5 mg in 50.5 mls @ 202 mls/hr IV Q6H PRN PRN Reason: Nausea And Vomiting Stop: 07/25/24 00:58 Last Infusion: 06/26/24 12:30 Dose: Infused Lorazepam (Lorazepam 0.5 Mg Tab) 0.5 mg PO Q8H PRN PRN Reason: Anxiety Stop: 07/26/24 13:46 Last Admin: 06/28/24 02:25 Dose: 0.5 mg Ondansetron HCl (Ondansetron Inj 2 Mg/Ml 2 Ml Vial) 4 mg IV Q6H PRN PRN Reason: Nausea Stop: 07/25/24 00:49
[2024-06-30] MEDS: CALCIUM CARBONATE 500 MG CHEWABLE TAB PO PRN (23:19)
[2024-07-01 06:41] LABS: Hematocrit (blood only) 43.4 % (42.0-52.0); Hemoglobin 15.7 g/dl (14.0-18.0); Mean Corpuscular Hemoglobin 32.8 pg (25.0-34.0); Mean Corpuscular Hgb Conc 36.2 g/dL (32.0-36.0); Mean Corpuscular Volume 90.6 fL (80.0-100.0); Mean Platelet Volume 10.3 fL (9.4-12.4); Platelet Count 217 K/uL (130-400); RDW Coefficient of Variation 11.5 % (11.5-14.5); RDW Standard Deviation 37.5 fL (36.4-46.3); Red Blood Count 4.79 M/uL (4.70-6.10); White Blood Count 13.71 K/ul (4.8-10.8)
[2024-07-01 07:04] LABS: Albumin Globulin Ratio 1.1 (0.9-2); Albumin Level 3.2 gm/dl (3.4-5.0); BUN Creatinine Ratio 16.4 (10-20); Bilirubin,Total 0.4 mg/dl (0.2-1.0); Calcium 8.5 mg/dl (8.6-10.3); Creatinine Clr Calc Pharmacy 143.2 ml/min; Est GFR (African American) 140.3 ml/min; Magnesium 2.1 mg/dl (1.7-2.4); Potassium 4.3 mmol/L (3.5-5.1); Total Protein 6.2 gm/dl (6.0-8.3)
[2024-07-01 07:19] LABS: Thyroid Stimulating Hormone 6.078 uIu/ml (0.300-4.500)
[2024-07-01 07:54] LABS: T4 Free Thyroxine 0.9 ng/dl (0.61-1.60)
[2024-07-01 08:01] LABS: ANC (manual) 9.46 K/uL (1.4-6.5); Basophils # (manual) 0.27 K/uL (0-0.2); Basophils % (manual) 2 %; Eosinophils # (manual) 0.27 K/uL (0-0.50); Eosinophils % (manual) 2 %; Lymphocytes # (manual) 1.37 K/uL (1.2-3.4); Lymphocytes % (manual) 10 %; Monocytes % (manual) 8 %; Neutrophils # (manual) 9.46 K/uL (1.40-6.50); Neutrophils % (manual) 69 %; Polychromasia 1+; Reactive Lymphocytes # (manual) 1.23 K/uL; Reactive Lymphocytes % (manual) 9 %
--- NOTE | 2024-07-01 10:45 | Hospitalist Progress Note ---
<Statement entered by Ayaz Cadet DO - 07/01/24 13:14> I have seen and examined the patient and have discussed the case with the provider above. I have reviewed the advanced practitioner's documentation, and I agree with, and take responsibility for that plan of care. 16 minutes spent on review of records in care of the patient. Patient offers no complaints, feeling well, headache resolved. Aseptic meningitis-completing course of antibiotics for possible bacterial meningitis. Plan of care as outlined below Date of Service July 01, 2024 Assessment & Plan (1) Meningitis: (2) History of intravenous drug abuse: (3) History of hepatitis C: (4) Nausea: (5) Thrombocytopenia: Plan On Admission: "38-year-old male with past medical history significant for migraines comes with c/o headaches and fevers. Patient's headache is going on for about a week. Also having fevers for 1 week. Also neck pain. Back pain. Spine pain. Complains of some runny nose. Some sore throat. Some cough. Abdominal pain. Constipated. Some shortness of breath. No chest pains. Appetite is poor. Micturating okay. While ambulating having imbalance. Vision is okay. Lights bothering him. Was at [facility] today. CT head was okay there. And he was transferred here for possible meningitis and for LP. Hemodynamics okay today." Atypical Meningitis viral vs bacterial: acute Severe headache, neck pain, encephalopathy; continues to improve Fevers x1 week; 06/25 LP done; Cloudy per IR. CSF CBC 1,898. glucose is low(32) with elevated protein(147) HSV PCR is negative previous provider discussed with Dr. Jeffery in pathology--> numerous vacuolated macrophages. flow cytometry ordered for remaining fluid for analysis--> negative for neoplastic process Leukocytosis WBC 17.09--> 13k Initially on Rocephin, Vanco and acyclovir; continue for now per ID recs Now on IV rocephin only - plan to continue for additional 7-10 days through 07/11 Previously on IV steroids as well Tolerating diet and feels back to baseline Droplet precautions in place ECHO unremarkable HIV negative No recent travel, No new medications, no exotic pets or known mold exposure Last week their cat killed a few moles and a bat; patient disposed of the rodents. Unknown exposure to saliva, blood Not a tamela or fisherman. DDX includes: 1. Neoplastic type leukemia malignancy - ruled out 2. Mollarets meningitis (associated with HSV which is negative, likely ruled out 3. Lymphocytic choriomeningitis virus 4. Viral Meningitis including [place] 5. Tick borne The following imaging is negative: [facility] 06/24: negative Brain MRI: negative CTA head and neck ordered and pending CSF all unremarkable - Lyme still pending, WNV pending Discussed with ID who recommended further testing for WNV, also questioning anaplasma, anaplasma, babesia, Ehrlichia serologies which will be ordered Plan to continue IV ceftriaxone as outpatient through 07/11, script written, will await CM to set out agency Order placed for US Guided IV placement As long as pt remains fever free likely discharge in a.m. Thrombocytopenia acute Platelets 83--> 76--> 06/26 improving @ 102 likely in setting of meningitis This has since resolved as course of illness has improved H/O Hepatits C: H/O IVDA: Chronic Diagnosed 13-15 years ago. No formal treatment for Hepatitis C given marijuana use and they were amidst trying to conceive children Known needle history with tattoo administration Known H/O IVDA 20 years ago. Last known use 20 years ago - confirmed this again on 07/01 No homosexual encounters HIV negative today Back pain: H/O Compression fractures: chronic Per , worsens with immobilization Takes Ibuprofen PRN at home Disposition: DVT prophylaxis: Teds/SCDs for now Disposition: med tele, awaiting further recs from ID Code Status: Full code Tg, , to be contacted with updates. A total of 49 minutes was spent coordinating, documenting, and providing care for this patient excluding time spent in the performance of separately billed services. This included personally viewing all current laboratories and imaging studies, medication reconciliation, outpatient chart review, and discussion with specialists. Admission and Anticipated Discharge Date Admission Date: June 25, 2024 Subjective Patient was seen and examined in room 287-2. Follow up Meningitis. "Please get me out of here." He denies any complains except for the room going from one extreme to the other temperature martin. He denies f/c/s, chest pain, sob, n/v/d. He is tolerating diet and moving bowels. He has been fever free since yesterday afternoon. Review of Systems Review of Systems: All systems reviewed & are unremarkable except as noted in HPI & below Physical Exam Physical Exam: Gen: WD/WN, NAD, A&O x3 HEENT: Normocephalic, atraumatic, conjunctivae moist, sclerae anicteric, mucous membranes moist. Lung: Clear to Auscultation bilaterally, no wheezes/rales/rhonchi Heart: Regular rate, regular rhythm, no murmurs, rubs, or gallops Abdomen: Soft, NT, ND +BS x 4 Extremities: No edema Skin: Warm, no rash, negative turgor. Results & Data Results & Data Vital Signs (Past 12 Hours) Vital Signs Temp Pulse Pulse Resp BP BP Pulse Ox 07/01/24 10:00 36.8 C 07/01/24 08:00 07/01/24 07:44 37.2 C 75 16 119/77 99 07/01/24 07:29 70 07/01/24 03:50 37.3 C 76 18 115/76 99 06/30/24 23:23 37.2 C 87 18 121/80 98 O2 Del Method 07/01/24 10:00 07/01/24 08:00 Room Air 07/01/24 07:44 Room Air 07/01/24 07:29 07/01/24 03:50 Room Air 06/30/24 23:23 Room Air Laboratory Results I have independently reviewed and interpreted patient's CBC, CMP, TSH Brain MRI 06/25/24 00:50 Exam(s): MRI HEAD Without Contrast EXAM: MR Head Without Intravenous Contrast CLINICAL HISTORY: severe headache. TECHNIQUE: Magnetic resonance images of the head/brain without intravenous contrast in multiple planes. COMPARISON: No relevant prior studies available. FINDINGS: Brain: The expected midline structures are unremarkable on sagittal T1 weighted imaging. No mass. No hemorrhage. No acute infarct. Ventricles: Unremarkable. No ventriculomegaly. Bones/joints: Unremarkable. No acute fracture. Sinuses: Unremarkable as visualized. No acute sinusitis. Mastoid air cells: Unremarkable as visualized. No mastoid effusion. Orbits: Unremarkable as visualized. IMPRESSION: Normal head/brain MRI. Electronically signed by: Randy Maza MD 06/25/24 03:19 AM Lumbar Puncture 06/25/24 08:00 Lumbar puncture under fluoroscopy INDICATION: Headache and fever; evaluate for meningitis PROCEDURE: Procedure and risks were explained. Informed consent was obtained. A final timeout was completed. The patient was placed prone on the fluoroscopic exam table. The lower lumbar region was prepped and draped in sterile fashion. 1% lidocaine was utilized for skin anesthesia. Utilizing fluoroscopic guidance, a 22-gauge spinal needle was advanced into the intrathecal space at the L2-3 level. Spot image was obtained. Opening pressure was measured at 22 cm H20. Approximately 10 mL of cloudy CSF fluid was removed and sent to the lab for analysis. The needle was removed and Band-Aid applied. The patient tolerated the procedure well. Vital signs will be monitored postprocedure. Total fluoroscopy time 10 seconds. Study dose 14.99 mGy. IMPRESSION: Lumbar puncture as above. Performed, dictated, and signed by Randy Bhakta PA-C; to be co-signed by Dr. Vikas Sousa. Electronically signed by: Vikas Sousa M.D. 06/25/2024 12:06 PM Chest X-Ray 06/29/24 07:51 XR chest 2V PA/lateral HISTORY: Cough. r/o Pneumonia COMPARISON: None. FINDINGS: The lungs are clear. Cardiac silhouette is normal in size. No pleural effusions. No pneumothorax. IMPRESSION: No acute process. ACT 112: Negative or not required by law. Electronically signed by: Vikas Sousa M.D. 06/29/2024 9:22 AM Medications Administered Current Inpatient Medications Acetaminophen (Acetaminophen 325 Mg Tab) 650 mg PO Q6H PRN PRN Reason: Pain or Fever Stop: 07/29/24 03:39 Last Admin: 07/01/24 09:22 Dose: 650 mg Calcium Carbonate (Calcium Carbonate 500 Mg Chewable Tab) 500 mg PO BID PRN PRN Reason: Heartburn Stop: 07/30/24 22:34 Last Admin: 06/30/24 23:19 Dose: 500 mg Docusate Sodium (Docusate Sodium 100 Mg Cap) 100 mg PO BID [facility] Stop: 07/26/24 20:59 Last Admin: 07/01/24 09:22 Dose: 100 mg Enoxaparin Sodium (Enoxaparin Inj 40 Mg/0.4 Ml Syr) 40 mg SQ QAM [facility] Stop: 07/28/24 14:44 Last Admin: 07/01/24 09:21 Dose: 40 mg Ceftriaxone Sodium (Rocephin) 2,000 mg in 50 mls @ 100 mls/hr IV Q12H YFN Stop: 07/05/24 01:14 Last Infusion: 07/01/24 02:57 Dose: Infused Promethazine HCl (Phenergan) 12.5 mg in 50.5 mls @ 202 mls/hr IV Q6H PRN PRN Reason: Nausea And Vomiting Stop: 07/25/24 00:58 Last Infusion: 06/26/24 12:30 Dose: Infused Lorazepam (Lorazepam 0.5 Mg Tab) 0.5 mg PO Q8H PRN PRN Reason: Anxiety Stop: 07/26/24 13:46 Last Admin: 06/28/24 02:25 Dose: 0.5 mg Ondansetron HCl (Ondansetron Inj 2 Mg/Ml 2 Ml Vial) 4 mg IV Q6H PRN PRN Reason: Nausea Stop: 07/25/24 00:49
[2024-07-02 07:55] VITALS: PULSE 81; RESP 20; TEMP 98.8; O2SAT 99
[2024-07-02 09:48] VITALS: BP 118/77
--- NOTE | 2024-07-02 10:50 | Discharge Summary ---
<Statement entered by Ayaz Cadet, - 07/03/24 07:04> I have seen and examined the patient and have discussed the case with the provider above. I have reviewed the advanced practitioner's documentation, and I agree with, and take responsibility for that plan of care. 14 minutes spent on care and coordination with patient Patient seen and examined on 07/02/2024. Reviewed his remote history of IV drug use. States he has been clean for close to 20 years. Low risk/concern for sending patient home with midline for home IV antibiotics Plan of care as outlined below Discharge Summary Date of Service July 02, 2024 Principal Dx & Hospital Course #1 = Principal Diagnosis (1) Meningitis: (2) History of intravenous drug abuse: (3) History of hepatitis C: (4) Nausea: (5) Thrombocytopenia: Plan This is a 38-year-old male with past medical history significant for migraines comes with c/o headaches and fevers and admitted for atypical meningitis, viral versus bacterial. LP on 06/25 showed elevated CBC, low glucose and elevated protein. HSV PCR negative. Per pathology, numerous vacuolated macrophages. Patient without recent travel or exotic pets but last week their cat killed a few moles and a bat and patient disposed of the rodents. Differential diagnosis, especially when considering numerous vacuolated macrophages on pathology included a neoplastic type leukemia malignancy (which was ruled out), Mollarets meningitis (associated with HSV which is negative, likely ruled out), viral meningitis (CSF unremarkable with exception of Tick serology and WNV still pending). HIV negative. Brain MRI (06/25/24) with normal head/brain MRI. Neurology initially consulted but based on clear infectious etiology, normal brain MRI and clinical improvement did not feel a formal consult was needed. Further discussion with [facility] over the weekend who felt that with clinical improvement, transfer to tertiary care was not warranted. Initially on Rocephin, Vanco and acyclovir per ID recs but per discussion with Dr. Cadet of ID over the weekend, strongly suspecting bacterial cause and recommended discontinuation of acyclovir and steroids. Continued on IV Rocephin Q12 for an additional 10 day s, through 07/11. Picc placed and home health coordinated. Thrombocytopenia has resolved. Last fever 06/30. Follow up pending WNV and tick serology. Coordinating follow up with PCP and ID. Clinically returned to baseline. Afebrile and hemodynamically stable at time of discharge home. Notes For Next Care Provider Medication Changes From Visit Continue Rocephin 2gm IV Ceftriaxone Q12 hours through 07/11 Admission HPI Per Admitting Provider 38-year-old male with past medical history significant for migraines comes with c/o headaches and fevers. Patient's headache is going on for about a week. Also having fevers for 1 week. Also neck pain. Back pain. Spine pain. Complains of some runny nose. Some sore throat. Some cough. Abdominal pain. Constipated. Some shortness of breath. No chest pains. Appetite is poor. Micturating okay. While ambulating having imbalance. Vision is okay. Lights bothering him. Was at [facility] today. CT head was okay there. And he was transferred here for possible meningitis and for LP. Hemodynamics okay. Mother is in the room. Past medical history. Migraines Past surgical history. Bilateral carpal tunnel surgeries Social history. Vapes tobacco. Currently no alcohol use. No drug use. Family history. No significant family history Admission Exam Per Admitting Provider General- Not in distress Head- atraumatic Eyes- EOMI ENT- oropharynx clear Neck- supple, no JVD. Lungs- clear to auscultation no wheezing or crackles. Heart- regular rate and rhythm; no murmur, no gallop. Abdomen- normal bowel sounds, soft, , no distension Extremities- no pretibial edema, no erythema seen Neuro- alert, oriented ; EOMI; no facial palsy; no dysarthria; moves extremities Skin- warm & dry Discharge Exam Gen: WD/WN, NAD, sitting on side of bed, A&Ox3, anxious HEENT: Normocephalic, atraumatic, conjunctivae moist, sclerae anicteric, mucous membranes moist Lung: Clear to Auscultation bilaterally, no wheezes/rales/rhonchi Heart: Regular rate, regular rhythm, no murmurs, rubs, or gallops Abdomen: Soft, NT, ND +BS x 4 Extremities: no edema Skin: Warm, no rash Hospital Stay Data Consultations 06/25/24 08:00 Consult Infectious Diseases Routine Diagnostic Imagining Performed 06/25/24 00:50 MR brain wo con Urgent 06/25/24 08:00 IR lumbar puncture diagnostic Routine Pending Results Patient Have Any Pending Studies at Discharge: Yes Discharge Instructions Given to Patient (Per Discharging Provider) MEDICATION CHANGES: Continue Rocephin 2gm IV Ceftriaxone Q12 hours through 07/11 per infectious disease - home health coordinated, will arrive around 3PM today for afternoon dose PENDING TEST RESULTS: Brain MRI (06/25/24) with normal head/brain MRI CSF unremarkable with Tick serology and WNV pending RECOMMENDATIONS FOR FOLLOW-UP: Follow up with PCP and infectious disease as scheduled. Complete antibiotic in its entirety. Consider neuro follow up if recurrent symptoms. Continue medication regimen as scheduled aside from changes noted above. OTHER INSTRUCTIONS: Seek medical attention if you have: * temperature above 101 * chest pain or trouble breathing * abdominal pain, nausea, vomiting * diarrhea, dark stools or bloody stools * any unanswered questions or concerns Call 911 if symptoms are severe. Please take good care of yourself. Call if you have any questions or problems. You can reach a [facility] hospitalist on duty at [facility] 24 hours a day by calling [phone]. Total Time Total Time Spent Total Time Spent (In Minutes): 65
--- NOTE | 2024-07-02 20:11 | Communication Note ---
<Statement entered by Ayaz Cadet, DO - 07/03/24 08:14> I have reviewed the advanced practitioner's documentation, and I agree with, and take responsibility for that plan of care. Discussed phone conversation [facility]LE[facility] with patient. Date of Service: July 02, 2024 called this evening stating that patient had a low grade fever this afternoon when home health nurse was there giving afternoon dose of Rocephin. Given Tylenol and temp resolved. Patient continues to feel well, eating and drinking fluids without issue. Fever has not recurred. Discussed continuing supportive care and keeping low threshold to return to ED for any decline in clinical status, including temp >100.4, headache or any change in mentation. Lee Arellano PA-C
[2024-07-02 22:17] LABS: Lyme DNA PCR CSF or Synovial Not Detected (Not Detected); Lyme DNA Source CSF; Lyme IgG Band Pattern CSF DNR; Lyme IgG CSF NO BANDS DETECTED; Lyme IgM Band Pattern CSF DNR; Lyme IgM CSF NO BANDS DETECTED
[2024-07-04 07:48] LABS: Babesia microti DNA Not Detected (Not Detected)
[2024-07-04 10:13] LABS: West Nile Virus, PCR Source CSF; West Nile Virus, PCR, CSF NOT DETECTED (NOT DETECTED)
== END 2024-07-02 11:17 | disposition home health service (06) | DRG 98 ==
LOC: 3E 23:55 → SUATTDRO 06-25 00:34 → 2E 06-25 14:33 → 2N 06-27 10:06